=== PATIENT | female | born 1980 | race Caucasian/White ===

== ENCOUNTER 2019-01-29 18:05 | Emergency (ER) | payer OTHER ==
[~2019-01-29] VITALS: Ht 157.5 cm; Wt 70.3 kg
== END 2019-01-29 22:16 | disposition home or self-care (01) ==
LOC: ER 18:05
DX: J31.2 Chronic pharyngitis (principal)

== ENCOUNTER 2019-09-24 18:32 | Emergency (ER) | payer OTHER ==
[~2019-09-24] VITALS: Ht 157.5 cm; Wt 69.9 kg
[2019-09-24] MEDS ORDERED: DICLOFENAC SODI75 MG PO (21:28)
== END 2019-09-24 21:33 | disposition home or self-care (01) ==
LOC: ER 18:32
DX: G44.209 Tension-type headache, unspecified, not intractable (principal)

== ENCOUNTER 2020-08-08 15:28 | Emergency (ER) | payer OTHER ==
[~2020-08-08] VITALS: Ht 127 cm; Wt 68.0 kg
[~2020-08-08 15:28] MED LIST: DICLOFENAC SODI75 MG PO
[2020-08-08] MEDS ORDERED: ACETAMINOPHEN650 M2 PO (21:35)
[2020-08-08] MEDS ORDERED: BENADRYL ALLERG25 MG PO (21:35)
== END 2020-08-08 21:42 | disposition home or self-care (01) ==
LOC: ER 15:28
DX: B01.9 Varicella without complication (principal); R21 Rash and other nonspecific skin eruption